=== PATIENT | female | born 1955 | race Caucasian/White ===

== ENCOUNTER 2016-10-15 08:00 | Outpatient (CLI) | payer BC ==
[2016-10-15 09:20] LABS: ALT (SGPT) 15 U/L (8-55); AST (SGOT) 18 U/L (5-34); Albumin 3.7 g/dL (3.4-4.8); Alkaline Phosphatase 69 U/L (40-150); Anion Gap 13 mmol/L (10-20); BUN (Urea Nitrogen) 18 mg/dL (9.8-20.1); Bilirubin, Total 0.7 mg/dL (0.2-1.2); Calc. Creatinine Clearance 0 mL/min (70-130); Calcium 9.4 mg/dL (7.8-10.44); Carbon Dioxide 27 mmol/L (23-31); Cardiac Risk 3.6 (Less than 4.5); Chloride 104 mmol/L (98-107); Cholesterol 185 mg/dl (< 200 Desired); Estimated GFR-MDRD 72; Globulin 3.1 g/dL (2.4-3.5); Glucose 101 mg/dL (80-115); HDL Cholesterol 52 mg/dL (>60 Neg Risk); LDL Cholesterol, Calculated 119 mg/dL; Potassium 4.2 mmol/L (3.5-5.1); Protein, Total 6.8 g/dL (6.0-8.3); Sodium 140 mmol/L (136-145); Triglycerides 71 mg/dL (Less than 150)
[2016-10-15 09:53] LABS: Thyroid Stimulating Hormone 1.5019 uIU/mL (0.35-4.94); Vitamin D, 25 Hydroxy 10.3 ng/ml (> 30.0)
[2016-10-16 09:50] LABS: #Basophils 0.1 thou/uL (0.0-0.2); #Eosinphils 0.2 thou/uL (0.0-0.7); #Lymphocytes 2.5 thou/uL (1.20-3.40); #Monocytes 0.5 thou/uL (0.11-0.59); #Neutrophils 4.5 thou/uL (1.40-6.50); %Basophils 1.1 % (0.0-1.0); %Eosinophils 2.1 % (0.0-10.0); %Lymphocytes 32.4 % (21.0-51.0); %Monocytes 6.7 % (0.0-10.0); %Neutrophils 57.8 % (42.0-75.0); Hemoglobin 12.9 g/dL (12.0-16.0); Mean Corpuscular HGB CONC 31.9 g/dL (32.0-36.0); Mean Corpuscular Hemoglobin 28.4 pg (27.0-31.0); Mean Corpuscular Volume 89.1 fl (81.0-99.0); Platelet Count 188 thou/uL (130-400); RBC Distribution Width 13.1 % (11.5-14.5); Red Blood Cell (RBC) Count 4.55 mill/uL (4.20-5.40); White Blood Cell (WBC) Count 7.7 thou/uL (4.8-10.8)
== END 2016-10-15 08:01 | disposition home or self-care (01) ==
LOC: NAV LAB 08:00
PROVIDERS: ATTEND Obstetrics & Gynecology
DX: Z01.419 Encounter for gynecological examination (general) (routine) without abnormal findings (principal); Z13.1 Encounter for screening for diabetes mellitus; Z13.6 Encounter for screening for cardiovascular disorders
CPT/HCPCS: 36415; 80053; 80061; 82306; 84443; 85025

== ENCOUNTER 2019-03-20 09:46 | Outpatient (CLI) | payer OTHER ==
--- NOTE | 2019-03-20 10:18 | RAD ---
XR Knee Lt 4 View STANDARD HISTORY: Osteoarthritis, left knee pain FINDINGS: No fracture or dislocation is identified. Degenerative changes are present manifested by osteophyte f ormation and joint space narrowing predominantly in the medial tibiofemoral and patellofemoral compartments. IMPRESSION: Left knee osteoarthritis.
--- NOTE | 2019-03-20 10:28 | RAD ---
4 views of the right knee: 03/20/2019 COMPARISON: None HISTORY: Osteoarthritis FINDINGS: There is severe patellofemoral degenerative change with prominent joint space narrowing and osteophyte formation. No knee joint effusion. No displaced fracture or evidence of dislocation. Moderate/severe medial and lateral compartment narrowing noted with associated osteophytosis. IMPRESSION: Severe multicompartment degenerative joint disease. No acute fracture or dislocation.
== END 2019-03-20 09:47 | disposition home or self-care (01) ==
LOC: NAV RAD 09:46
PROVIDERS: ATTEND Family Medicine
DX: M17.0 Bilateral primary osteoarthritis of knee (principal)

== ENCOUNTER 2019-09-15 17:28 | Inpatient (IN) | payer OTHER ==
[2019-09-15] MEDS: Aspirin 81 mg Enteric Coated Tablet PO SCH (21:22)
[2019-09-16 05:56] LABS: ALT (SGPT) 16 U/L (8-55); AST (SGOT) 33 U/L (5-34); Alkaline Phosphatase 53 U/L (40-110); Anion Gap 12 mmol/L (10-20); BUN (Urea Nitrogen) 19 mg/dL (9.8-20.1); Bilirubin, Total 0.5 mg/dL (0.2-1.2); Calc. Creatinine Clearance 172 mL/min (70-130); Calcium 9.5 mg/dL (7.8-10.44); Carbon Dioxide 28 mmol/L (23-31); Chloride 103 mmol/L (98-107); Estimated GFR-MDRD 74; Globulin 2.5 g/dL (2.4-3.5); Glucose 96 mg/dL (80-115); Potassium 3.8 mmol/L (3.5-5.1); Protein, Total 5.5 g/dL (6.0-8.3); Sodium 139 mmol/L (136-145)
[2019-09-16 06:04] LABS: Band 10 % (5-11); Eosinophils 1 % (0-10); Hemoglobin 10.9 g/dL (12.0-16.0); Hypochromia SLIGHT = 6-15 cells (100X) (0-5/hpf); Lymphocytes 31 % (21-51); MDiff Complete? YES; Mean Corpuscular HGB CONC 31.8 g/dL (32.0-36.0); Mean Corpuscular Hemoglobin 29.7 pg (27.0-31.0); Mean Corpuscular Volume 93.5 fL (78.0-98.0); Metamyelocyte 3 % (0-0); Monocytes 7 % (0-10); Neutrophil 48 % (42-75); Platelet Count 172 thou/uL (130-400); Platelet Morphology Comment Appears Adequate; RBC Distribution Width 12.5 % (11.5-14.5); Red Blood Cell (RBC) Count 3.65 mill/uL (4.20-5.40); White Blood Cell (WBC) Count 9.8 thou/uL (4.8-10.8)
--- NOTE | 2019-09-16 08:28 | HP ---
Patient of Dr. Mónica Arriaga. HISTORY OF PRESENT ILLNESS: The patient is a very pleasant 64-year-old white female with a history of hypertension and severe osteoarthritis in left knee, who has recently undergone left total knee replacement with complications of intraoperative tear of infrapatellar ligament requiring knee immobilizer. The patient has had no symptoms of dizziness, lightheadedness, chest pain, shortness of breath, or headache, but is concerned about caring for herself at home with a knee immobilizer and therefore was admitted to the [facility] for PT/OT. PAST MEDICAL HISTORY: Remarkable for hypertension, morbid obesity, and bilateral knee arthritis. PAST SURGICAL HISTORY: Positive for hysterectomy and bilateral oophorectomy secondary to uterine cancer and ovarian cyst. FAMILY MEDICAL HISTORY: Positive for leukemia, melanoma, coronary artery disease, and heart failure. SOCIAL HISTORY: She is a nonsmoker and nondrinker. She lives alone. MEDICATIONS: Include, 1. Hydrochlorothiazide 25 mg daily. 2. Metoprolol succinate 100 mg daily. 3. Lisinopril 40 daily. ALLERGIES: SHE HAS NO KNOWN ALLERGIES. REVIEW OF SYSTEMS: HEENT: Denies headaches, dizziness, change in vision or hearing, hoarseness, or dysphagia. PULMONARY: Denies cough, sputum production, pneumonia, asthma, or tuberculosis. CARDIOVASCULAR: Denies chest pain, orthopnea, paroxysmal nocturnal dyspnea, or edema. GASTROINTESTINAL: Denies nausea, vomiting, diarrhea, constipation, or abdominal pain. GENITOURINARY: Denies dysuria, hematuria, or nocturia. MUSCULOSKELETAL: Has [id number] pain in the left knee, on no pain medication at this time. NEUROLOGIC: Denies localized numbness or weakness in arms or extremities. PHYSICAL EXAMINATION: GENERAL: The patient is a middle-aged white female, morbidly obese, alert and oriented x3 and cooperative. No complaints. HEENT: Pupils are equal, round, and reactive to light and accommodation. Sclerae anicteric. Conjunctivae pale. Oral mucous membranes are well hydrated. NECK: Supple. There are no nodes or masses. JVP is not elevated. LUNGS: Clear. CARDIAC: Shows regular rhythm. No gallops or murmurs. ABDOMEN: Soft, nontender. SKIN/EXTREMITIES: Show left leg in a knee immobilizer with no erythema, warmth, or drainage from the knee. NEUROLOGICAL: Intact. ASSESSMENT: 1. Status post left total knee replacement with complications of infrapatellar tendon damage, now in knee immobilizer, admitted for PT and OT. 2. Hypertension, controlled to goal. PLAN: Continue PT/OT. Continue blood pressure control, pain relief as needed. The patient to be followed by Dr. Arriaga, her PCP starting tomorrow. Job ID: [id number]
[2019-09-16] MEDS: Aspirin 81 mg Enteric Coated Tablet PO SCH ×2 (08:56→21:03)
[2019-09-16] MEDS: Hydrochlorothiazide 25 MG TAB PO SCH (08:57)
[2019-09-16] MEDS: Lisinopril 20 MG TAB PO SCH (08:57)
[2019-09-16] MEDS: Amlodipine 5 MG TAB PO SCH (08:58)
[2019-09-16] MEDS ORDERED: Prevnar 13-Val Conj/PF 0.5 ML SYRINGE IM ONE (09:00)
[2019-09-16] MEDS ORDERED: Multivit, Therapeutic 1 TAB PO SCH (09:00)
[2019-09-16] MEDS ORDERED: Non-Formulary Item 1 EACH (Lisinopril/Hydrochlorothiazide [Lisinopril-Hctz 20-12.5 Mg Tab PO SCH (09:00)
[2019-09-16] MEDS ORDERED: traMADol HCl 50 MG TAB PO PRN (10:12)
--- NOTE | 2019-09-16 11:31 | PRG ---
DATE OF SERVICE: 09/16/2019 SUBJECTIVE: The patient is a 64-year-old female, who recently underwent left knee replacement surgery in [place] with Dr. Fountain, who had a complication of a patellar tendon that was cut during the surgery. This was repaired and the patient is now on a straight leg brace and will need to be in one per Dr. Fountain's notes for 6 weeks. The patient states that her pain is okay right now. She does not currently have any pain medication ordered. She has not yet started therapy down here, but she was doing therapy up in [place]. OBJECTIVE: VITAL SIGNS: Temperature 98.4, pulse 73, respiration rate 18, O2 saturation 98% on room air, blood pressure 134/82. GENERAL: The patient is awake, alert, oriented, in no acute distress. CARDIOVASCULAR: Regular rate and rhythm without murmurs, gallops, or rubs. LUNGS: Clear to auscultation bilaterally without wheezing or rhonchi. ABDOMEN: Soft, nontender, nondistended. Bowel sounds present. EXTREMITIES: No clubbing or cyanosis. The patient does have edema on the left lower extremity which is to be expected following surgery. The dressing is clean, dry, and intact. There is no surrounding erythema and she does have a straight leg brace on. PSYCHIATRIC: The patient displays an appropriate mood and affect. LABORATORY DATA: CBC: WBCs 9.8, hemoglobin 10.9, hematocrit 34.2, platelet count 172. CMP: Sodium 139, potassium 3.8, chloride 103, bicarb 28, BUN 19, creatinine 0.78, glucose 96, calcium 9.5, total bilirubin 0.5, AST 33, ALT 16, alkaline phosphatase 53, total protein 5.5, albumin 3.0. ASSESSMENT AND PLAN: 1. Status post left knee replacement: I have added Tylenol, ibuprofen, and tramadol for pain if she needs it. She will start working with therapy to help improve mobility, so that she will be safe going home. The patient is hoping that she is only here for about a week. 2. Patellar tendon injury: The patient's patellar tendon was injured as a result of surgery and had to be sutured back together. The patient will be partial weightbearing on the left lower extremity 50% and will need to be on a straight leg brace for 6 weeks. 3. Hypertension: The patient's blood pressure is well controlled on her current home medications. We will continue this. Job ID: [id number]
[2019-09-16] MEDS: Acetaminophen 500 MG TAB PO PRN (21:04)
[2019-09-17] MEDS: Aspirin 81 mg Enteric Coated Tablet PO SCH ×2 (09:54→20:20)
[2019-09-17] MEDS: Amlodipine 5 MG TAB PO SCH (09:55)
[2019-09-17] MEDS: Hydrochlorothiazide 25 MG TAB PO SCH (09:55)
[2019-09-17] MEDS: Lisinopril 20 MG TAB PO SCH (09:56)
[2019-09-17] MEDS: Multivitamin W/ Minerals 1 TAB PO SCH (09:56)
[2019-09-17] MEDS: Acetaminophen 500 MG TAB PO PRN (20:20)
[2019-09-18] MEDS: Lisinopril 20 MG TAB PO SCH (08:16)
[2019-09-18] MEDS: Aspirin 81 mg Enteric Coated Tablet PO SCH ×2 (08:17→20:53)
[2019-09-18] MEDS: Multivitamin W/ Minerals 1 TAB PO SCH (08:17)
[2019-09-18] MEDS: Amlodipine 5 MG TAB PO SCH (08:18)
[2019-09-18] MEDS: Hydrochlorothiazide 25 MG TAB PO SCH (08:19)
[2019-09-18] MEDS: Ibuprofen 800 MG TAB PO PRN (08:26)
--- NOTE | 2019-09-18 09:55 | PRG ---
DATE OF SERVICE: 09/18/2019 SUBJECTIVE: The patient is a 64-year-old female who recently underwent left knee replacement with a complication of a patellar tendon that was injured during the surgery. The patient remains in a straight leg brace on the left side. Their plans for the patient to move to a different room with a bigger bathroom to help her maneuver a little bit easier. The patient states that she did take some Tylenol last night, but overall her pain is controlled with current medications. OBJECTIVE: VITAL SIGNS: Temp 97.3, pulse 76, respiration rate 18, O2 saturation 95% on room air, blood pressure 124/61. GENERAL: The patient is awake, alert, oriented, and in no acute distress. CARDIOVASCULAR: Regular rate and rhythm without murmurs, gallops, or rubs. LUNGS: Clear to auscultation bilaterally without wheezing or rhonchi. ABDOMEN: Soft, nontender, and nondistended. EXTREMITIES: The patient has trace to 1+ edema bilaterally which is at the patient's baseline. MUSCULOSKELETAL: The patient has a straight leg brace placed on the left leg. The patient's incision appears clean, dry, and intact. The bandage does not appear to be soiled. ASSESSMENT AND PLAN: 1. Status post left knee replacement: The patient will work with PT and OT today to work on her mobility. 2. Patellar tendon tear: The patient remains in a straight leg brace for at least 6 weeks. We will need to follow up with Dr. Fountain. The patient is 50% weightbearing on the left lower extremity. 3. Hypertension: Blood pressure is well controlled. Job ID: [id number]
[2019-09-18 13:15] VITALS: BMI 48.9
[2019-09-18] MEDS: Acetaminophen 500 MG TAB PO PRN (20:53)
[2019-09-19] MEDS: Ibuprofen 800 MG TAB PO PRN (08:30)
[2019-09-19] MEDS: Lisinopril 20 MG TAB PO SCH (08:31)
[2019-09-19] MEDS: Amlodipine 5 MG TAB PO SCH (08:32)
[2019-09-19] MEDS: Hydrochlorothiazide 25 MG TAB PO SCH (08:32)
[2019-09-19] MEDS: Multivitamin W/ Minerals 1 TAB PO SCH (08:33)
[2019-09-19] MEDS: Aspirin 81 mg Enteric Coated Tablet PO SCH ×2 (08:33→20:12)
--- NOTE | 2019-09-19 12:28 | PRG ---
DATE OF SERVICE: 09/19/2019 SUBJECTIVE: The patient is a 64-year-old female who recently underwent knee replacement with complication of a patellar tendon tear during surgery, who is at [facility] for rehabilitation. The patient states that she is starting to have a little bit more cramping and pain in her knee, and she took some of the ibuprofen yesterday and that helped with her pain. She is wearing her straight leg brace. OBJECTIVE: VITAL SIGNS: Temperature 99.1, pulse 86, respiratory rate 18, O2 saturation 95% on room air, blood pressure 117/67. GENERAL: The patient is awake, alert, oriented, in no acute distress. CARDIOVASCULAR: Regular rate and rhythm without murmurs, gallops, or rubs. LUNGS: Clear to auscultation bilaterally without wheezing or rhonchi. ABDOMEN: Soft, nontender, nondistended. EXTREMITIES: There is no clubbing or cyanosis. The patient does have some mild lower extremity edema, which is to be expected. SKIN: The patient has a bandage over the incision which is clean, dry, and intact. NEUROLOGIC: The patient does have a straight leg brace on the left leg. PSYCHIATRIC: The patient displays appropriate mood and affect. ASSESSMENT AND PLAN: 1. Status post left knee replacement. The patient is working with PT and OT. She does have some limitations in that. She can only be 50% weightbearing on the left lower extremity and must remain in the straight leg brace. 2. Patellar tendon injury. The patient will remain in the straight leg brace for a total of 6 weeks. The patient has followup with Dr. Fountain in about 2 weeks. The patient has medications for pain control. 3. Constipation. The patient is asking for prune juice, which can help with constipation. I did offer other medications that she wants to try these first. 4. Hypertension. Blood pressure is well controlled. Job ID: [id number]
[2019-09-19] MEDS: Acetaminophen 500 MG TAB PO PRN (20:13)
[2019-09-20] MEDS: Amlodipine 5 MG TAB PO SCH (08:47)
[2019-09-20] MEDS: Multivitamin W/ Minerals 1 TAB PO SCH (08:48)
[2019-09-20] MEDS: Aspirin 81 mg Enteric Coated Tablet PO SCH ×2 (08:49→20:19)
[2019-09-20] MEDS: Hydrochlorothiazide 25 MG TAB PO SCH (08:49)
[2019-09-20] MEDS: Lisinopril 20 MG TAB PO SCH (08:49)
--- NOTE | 2019-09-20 17:44 | PRG ---
DATE OF SERVICE: 09/20/2019 SUBJECTIVE: The patient is a 64-year-old female, who is undergoing rehabilitation for the following; left knee replacement with subsequent patellar tendon injury during surgery. The patient states that her left leg is little bit more sore today, but she did have a shower yesterday and had a lot of manipulations to that leg. She is hoping that she can home sometime next week, but family members are at bedside telling her to stay as long as she thinks she needs. OBJECTIVE: VITAL SIGNS: Temperature 96.7, pulse 78, respiratory rate 18, O2 saturation 94% on room air, blood pressure 116/58. GENERAL: The patient is awake, alert, oriented, in no acute distress. CARDIOVASCULAR: Regular rate and rhythm without murmurs, gallops, or rubs. LUNGS: Clear to auscultation bilaterally without wheezing or rhonchi. EXTREMITIES: The patient has a straight leg raise. On the left lower extremity , there is a bandage that is still clean, dry, and intact and she does have some bruising starting to develop around the knee. PSYCHIATRIC: The patient displays appropriate mood and affect. ASSESSMENT AND PLAN: 1. Status post left knee replacement: There is a limit to what therapy services can do as the patient is unable to bend her knee due to the aforementioned patellar tendon injury. They are working for her to be successful in going home to be able to maneuver with that brace in place. The patient does have medications for pain and she has been trying them and she notes improvement in the pain. 2. Patellar tendon injury: The patient will need to remain in a straight leg raise for six weeks. She needs ortho followup in the next couple of weeks. We will continue to follow the recommendations. 3. Hypertension: Blood pressure is well controlled with current medications. 4. Constipation: Improved. Job ID: [id number] [facility]
[2019-09-20] MEDS: Acetaminophen 500 MG TAB PO PRN (22:30)
[2019-09-21] MEDS: Hydrochlorothiazide 25 MG TAB PO SCH (08:51)
[2019-09-21] MEDS: Aspirin 81 mg Enteric Coated Tablet PO SCH ×2 (08:52→21:10)
[2019-09-21] MEDS: Lisinopril 20 MG TAB PO SCH (08:52)
[2019-09-21] MEDS: Amlodipine 5 MG TAB PO SCH (08:53)
[2019-09-21] MEDS: Multivitamin W/ Minerals 1 TAB PO SCH (08:54)
[2019-09-21] MEDS ORDERED: Lisinopril 20 MG TAB PO SCH (09:15)
[2019-09-21] MEDS: Acetaminophen 500 MG TAB PO PRN (21:12)
[2019-09-22] MEDS: Lisinopril 20 MG TAB PO SCH (08:32)
[2019-09-22] MEDS: Amlodipine 5 MG TAB PO SCH (08:33)
[2019-09-22] MEDS: Aspirin 81 mg Enteric Coated Tablet PO SCH ×2 (08:33→21:01)
[2019-09-22] MEDS: Hydrochlorothiazide 25 MG TAB PO SCH (08:33)
[2019-09-22] MEDS: Multivitamin W/ Minerals 1 TAB PO SCH (08:35)
[2019-09-22] MEDS ORDERED: Hydrochlorothiazide 25 MG TAB PO SCH (09:00)
--- NOTE | 2019-09-22 11:03 | PRG ---
DATE OF SERVICE: 09/22/2019 SUBJECTIVE: The patient is a 64-year-old, female, undergoing rehabilitation following a left knee replacement. The patient states that they plan on working on her ability to ambulate up a ramp today. She does have a ramp installed at her house to get inside and so they will be practicing this. The patient also notes some mild constipation and has asked for prune juice. OBJECTIVE: VITAL SIGNS: Temperature 96.0, pulse 78, respiration rate 18, O2 saturation 94% on room air, and blood pressure 133/82. GENERAL: The patient is awake, alert, and oriented, in no acute distress. CARDIOVASCULAR: Regular rate and rhythm without murmurs, gallops, or rubs. LUNGS: Clear to auscultation bilaterally without wheezing or rhonchi. ABDOMEN: Soft, nondistended, and nontender to palpation. EXTREMITIES: There is no clubbing or cyanosis. The patient has some trace lower extremity edema, which is at its baseline. MUSCULOSKELETAL: The patient has a straight leg brace on the left leg and the incision looks clean, dry, and intact. ASSESSMENT AND PLAN: 1. Status post left knee replacement: The patient will continue working with therapy to improve strength and ambulation. The patient tentatively will be discharging next week. 2. Patellar tendon injury: The patient has a followup with Dr. Fountain on Wednesday of next week. If everything checks out, we will likely be able to discharge her that afternoon when she returns to the facility. 3. Hypertension: This is well controlled. 4. Constipation: The patient has Senokot ordered and she is going to drink prune juice, which typically helps. We can add additional medications if needed. Job ID: [id number]
--- NOTE | 2019-09-22 11:10 | PRG ---
DATE OF SERVICE: 09/21/2019 SUBJECTIVE: The patient is a 64-year-old female, who is at [facility] for rehabilitation following knee replacement and subsequent patellar tendon injury. The patient states that her pain is controlled. She does usually asks for some Tylenol toward the evening because that helps her to relax. She continues to be compliant with her straight leg brace and notes that she is getting stronger with physical therapy. OBJECTIVE: VITAL SIGNS: Temperature 96.8, pulse 72, respiration rate 18, O2 saturation 95% on room air, blood pressure is 133/74. GENERAL: The patient is awake, alert, oriented, in no acute distress. CARDIOVASCULAR: Regular rate and rhythm without murmurs, gallops, or rubs. LUNGS: Clear to auscultation bilaterally without wheezing or rhonchi. ABDOMEN: Soft, nontender to palpation. EXTREMITIES: There is no clubbing or cyanosis. The patient does have some mild edema in bilateral lower extremities, which is chronic. SKIN: There is minimal bruising around the incision on the left knee. ASSESSMENT AND PLAN: 1. Status post left knee replacement: The patient is unable to work on range of motion with the left knee due to the patellar tendon injury. She is doing better at ambulation with walker and is able to get herself to the bathroom without assistance. 2. Patellar tendon injury: The patient remains in a straight leg brace for 6 weeks. We will be arranging for followup with Dr. Fountain, her orthopedic surgeon, in the near future. She remains 50% weightbearing. 3. Hypertension: Blood pressure remains well controlled on her current regimen. No changes are indicated at this time. Job ID: [id number]
[2019-09-22] MEDS: Acetaminophen 500 MG TAB PO PRN (21:01)
[2019-09-23] MEDS: Amlodipine 5 MG TAB PO SCH (08:38)
[2019-09-23] MEDS: Hydrochlorothiazide 25 MG TAB PO SCH (08:39)
[2019-09-23] MEDS: Aspirin 81 mg Enteric Coated Tablet PO SCH ×2 (08:39→21:05)
[2019-09-23] MEDS: Lisinopril 20 MG TAB PO SCH (08:39)
[2019-09-23] MEDS: Multivitamin W/ Minerals 1 TAB PO SCH (08:40)
[2019-09-23] MEDS: Acetaminophen 500 MG TAB PO PRN (21:05)
[2019-09-24] MEDS: Aspirin 81 mg Enteric Coated Tablet PO SCH ×2 (09:09→20:14)
[2019-09-24] MEDS: Multivitamin W/ Minerals 1 TAB PO SCH (09:09)
[2019-09-24] MEDS: Hydrochlorothiazide 25 MG TAB PO SCH (09:09)
[2019-09-24] MEDS: Amlodipine 5 MG TAB PO SCH (09:10)
[2019-09-24] MEDS: Lisinopril 20 MG TAB PO SCH (09:10)
[2019-09-24] MEDS: Acetaminophen 500 MG TAB PO PRN (20:14)
[2019-09-25] MEDS: Amlodipine 5 MG TAB PO SCH (08:50)
[2019-09-25] MEDS: Multivitamin W/ Minerals 1 TAB PO SCH (08:50)
[2019-09-25] MEDS: Aspirin 81 mg Enteric Coated Tablet PO SCH ×2 (08:51→21:10)
[2019-09-25] MEDS: Hydrochlorothiazide 25 MG TAB PO SCH (08:51)
[2019-09-25] MEDS: Lisinopril 20 MG TAB PO SCH (08:51)
[2019-09-25] MEDS: Acetaminophen 500 MG TAB PO PRN (21:10)
[2019-09-26] MEDS: Multivitamin W/ Minerals 1 TAB PO SCH (08:27)
[2019-09-26] MEDS: Aspirin 81 mg Enteric Coated Tablet PO SCH ×2 (08:28→20:39)
[2019-09-26] MEDS: Lisinopril 20 MG TAB PO SCH (08:29)
[2019-09-26] MEDS: Amlodipine 5 MG TAB PO SCH (08:29)
[2019-09-26] MEDS: Hydrochlorothiazide 25 MG TAB PO SCH (08:30)
--- NOTE | 2019-09-26 09:26 | PRG ---
DATE OF SERVICE: 09/24/2019 SUBJECTIVE: The patient is a 64-year-old female, undergoing rehabilitation following left knee replacement and subsequent patellar tendon injury during surgery. The patient is doing quite well. She rates her pain at 3. She remains in her straight leg brace and has been able to start ambulating to the restroom with her walker unassisted. OBJECTIVE: VITAL SIGNS: Temperature 98.4, pulse 76, respiration rate 20, O2 saturation 94% on room air, blood pressure 110/61. GENERAL: The patient is awake, alert, oriented, and in no acute distress. CARDIOVASCULAR: Regular rate and rhythm without murmurs, gallops, or rubs. LUNGS: Clear to auscultation bilaterally without wheezing or rhonchi. ABDOMEN: Soft, nontender, nondistended. Bowel sounds are present. EXTREMITIES: There is no clubbing or cyanosis. The patient is in a straight leg brace on the left. SKIN: There is a bandage in place along the left knee, which is clean, dry, and intact. PSYCHIATRIC: The patient displays appropriate mood and affect. ASSESSMENT AND PLAN: 1. Status post left knee replacement surgery: The patient's pain is well controlled. She continues to work with therapy. 2. Patellar tendon injury: The patient is 50% weightbearing on the left lower extremity. She is to remain in a straight leg brace for 6 weeks and she has a little over 4 weeks left to go. 3. Hypertension: Blood pressure is well controlled. 4. Constipation is improved with prune juice. Job ID: [id number]
--- NOTE | 2019-09-26 09:34 | PRG ---
DATE OF SERVICE: 09/26/2019 SUBJECTIVE: The patient is a 64-year-old female, undergoing rehabilitation following left knee replacement and patellar tendon injury during surgery. The patient is doing quite well. She notes her pain is controlled and she is looking forward to going home tomorrow. OBJECTIVE: VITAL SIGNS: Temperature 96.6, pulse 70, respiration rate 18, O2 saturation 98% on room air, blood pressure 123/73. GENERAL: The patient is awake, alert, oriented, and in no acute distress. CARDIOVASCULAR: Regular rate and rhythm without murmurs, gallops, or rubs. LUNGS: Clear to auscultation bilaterally without wheezing or rhonchi. ABDOMEN: Soft, nontender, nondistended. Bowel sounds are present. EXTREMITIES: No clubbing or cyanosis. The patient does have some mild bruising around her left knee. MUSCULOSKELETAL: The patient has a straight leg brace in place on the left lower extremity. ASSESSMENT AND PLAN: 1. Status post left knee replacement: The patient is doing well, though she cannot get work on range of motion. There are plans for her to discharge tomorrow after she gets back from her appointment with Dr. Fountain. 2. Patellar tendon injury: The patient remains 50% weightbearing on the left lower extremity and is ambulating with a walker. We will follow up with recommendations from Ortho. 3. Hypertension: Well controlled. 4. Constipation, controlled. Job ID: [id number]
[2019-09-26] MEDS: Acetaminophen 500 MG TAB PO PRN (20:39)
[2019-09-27 07:59] VITALS: BP 122/60; TEMP 98.4
[2019-09-27] MEDS: Ibuprofen 800 MG TAB PO PRN (08:44)
[2019-09-27] MEDS: Lisinopril 20 MG TAB PO SCH (08:44)
[2019-09-27] MEDS: Multivitamin W/ Minerals 1 TAB PO SCH (08:45)
[2019-09-27] MEDS: Amlodipine 5 MG TAB PO SCH (08:46)
[2019-09-27] MEDS: Aspirin 81 mg Enteric Coated Tablet PO SCH (08:46)
[2019-09-27] MEDS: Hydrochlorothiazide 25 MG TAB PO SCH (08:46)
--- NOTE | 2019-09-27 10:11 | DIS ---
DATE OF ADMISSION: 09/15/2019 DATE OF DISCHARGE: 09/27/2019 DISCHARGE DIAGNOSES: 1. Status post left knee replacement. 2. Patellar tendon injury. 3. Hypertension. HOSPITAL COURSE: The patient is a 64-year-old female, who was transferred to the [facility] for rehabilitation following a left knee replacement surgery, where her patellar tendon is also injured during surgery. The patient remains in a straight leg brace and has an appointment with Orthopedics today. The patient is planning on discharging after her Ortho appointment. The patient has done well. She is 50% weightbearing on the left lower extremity and is ambulating with a walker. She has been able to move back and forth around the room and in the bathroom with her walker without assistance. Pain is controlled with Tylenol and ibuprofen. DISCHARGE MEDICATIONS: 1. Tylenol 1000 mg p.o. q.6 hours p.r.n. pain. 2. Amlodipine 10 mg p.o. daily. 3. Aspirin 81 mg p.o. b.i.d. 4. Vitamin D3, 4000 units p.o. daily. 5. Hydrochlorothiazide 25 mg p.o. daily. 6. Ibuprofen 800 mg p.o. q.8 hours as needed. 7. Lisinopril 40 mg p.o. daily. 8. Metoprolol-XL 100 mg p.o. at bedtime. DISPOSITION: 1. The patient will be discharged to home in stable condition as long as Ortho approves it. 2. The patient will follow up with me within 1 to 2 weeks. 3. The patient remains 50% weightbearing on the left lower extremity and will need to be in the straight leg brace for an additional 4 weeks. Job ID: [id number]
== END 2019-09-27 17:45 | disposition home or self-care (01) | DRG 560 ==
LOC: NAV ACUTE 17:28
PROVIDERS: ADMIT Family Medicine; ATTEND Family Medicine
DX: Z47.1 Aftercare following joint replacement surgery (principal); Z68.42 Body mass index [BMI] 45.0-49.9, adult; I10 Essential (primary) hypertension; E66.01 Morbid (severe) obesity due to excess calories; M17.0 Bilateral primary osteoarthritis of knee; K59.00 Constipation, unspecified; S86.802A Unspecified injury of other muscle(s) and tendon(s) at lower leg level, left leg, initial encounter; Z90.710 Acquired absence of both cervix and uterus
CPT/HCPCS: 80053; 85007; 85027; 90471; 90670; G0009